=== PATIENT | female | born 1960 | race Native Hawaiian/Other Pacific Islander ===

== ENCOUNTER 2018-03-11 13:57 | Outpatient (CLI) | payer BC ==
[~2018-03-11 13:57] MED LIST: CLIMARA0.05 MG TD; ESCI10TA PO; HYDR25TA60 PO; PROGESTERONE100 MG OR; REQUIP1 MG PO
== END 2018-03-11 20:24 | disposition home or self-care (01) ==
LOC: RAD 13:57
DX: M25.562 Pain in left knee (principal)

== ENCOUNTER 2019-01-27 13:34 | Outpatient (CLI) | payer BC | END 2019-01-27 23:04 | disposition home or self-care (01) | LOC: RAD 13:34 | DX: M25.562 Pain in left knee (principal) ==

== ENCOUNTER 2019-07-21 13:36 | Outpatient (CLI) | payer BC | END 2019-07-21 19:44 | disposition home or self-care (01) | LOC: RAD 13:36 | DX: M25.551 Pain in right hip (principal); M54.5 Low back pain ==

== ENCOUNTER 2019-08-15 11:20 | Outpatient (CLI) | payer BC ==
[2019-08-15 11:51] LABS: PLATELET COUNT 188 K/uL (152-353)
[2019-08-15 11:55] LABS: POTASSIUM 3.8 mmol/L (3.6-5.2)
== END 2019-08-15 21:57 | disposition home or self-care (01) ==
LOC: RAD 11:20
PROVIDERS: Nurse Practitioner Family
DX: Z01.818 Encounter for other preprocedural examination (principal); E03.9 Hypothyroidism, unspecified; R79.89 Other specified abnormal findings of blood chemistry
CPT/HCPCS: 36415; 80053; 81000; 84439; 84443; 85027

== ENCOUNTER 2019-12-02 11:05 | Outpatient (CLI) | payer BC | END 2019-12-02 20:06 | disposition home or self-care (01) | LOC: MRI 11:05 | DX: M54.5 Low back pain (principal) ==